=== PATIENT | female | born 1985 | race Caucasian/White ===

== ENCOUNTER → 2018-01-31 11:35 | Outpatient (REF) | payer OTHER, SELFPAY ==
[2018-01-31 13:54] LABS: Alanine Aminotransferase 17 U/L (12-78); Albumin Level 4.5 gm/dL (3.4-5.0); Albumin/Globulin Ratio 1.4 (1.1-1.8); Alkaline Phosphatase 64 U/L (46-116); Anion Gap 13.9 mEq/L (5-15); Aspartate Amino Transferase 6 U/L (15-37); Bilirubin,Total 0.4 mg/dL (0.2-1.0); Blood Urea Nitrogen 14 mg/dL (7-18); Calcium 9.1 mg/dL (8.5-10.1); Carbon Dioxide 27 mmol/L (21.0-32.0); Chloride 105 mmol/L (98-107); Chol/HDL Ratio 2.8 (1-3.5); Cholesterol 165 mg/dL (140-200); Creatinine,Serum 0.73 mg/dL (0.55-1.02); Estimated Glomerular Filt Rate 93 ml/min (>60); GFR (African American) 113 ML/MIN (>60); Globulin 3.3 gm/dl (1.3-3.2); Glucose 88 mg/dL (74-106); HDL Cholesterol 60 mg/dL (29-89); LDL Cholesterol 96 mg/dL (0-130); Potassium 4.9 mmoL/L (3.5-5.1); Sodium 141 mmol/L (136-145); Thyroid Stimulating Hormone 1.21 uIU/ml (0.358-3.740); Total Protein,Serum 7.8 gm/dL (6.4-8.2); Triglycerides 47 mg/dL (30-200); VLDL Cholesterol 9 mg/dL (0-40)
[2018-01-31 13:57] LABS: Basophils % 0.6 % (0.1-2.0); Eosinophils # 0.2 K/mm3 (0.0-0.4); Eosinophils % 2.7 % (0.1-12.0); Hematocrit 41.9 % (37.0-47.0); Hemoglobin 13.8 g/dL (12.2-16.2); Lymphocytes # 1.6 K/mm3 (0.7-4.5); Lymphocytes % 28.9 K/mm3 (10-50); Mean Corpuscular HGB Conc 33.1 g/dL (31.8-35.4); Mean Corpuscular Hemoglobin 31.4 pg (27.0-31.2); Mean Corpuscular Volume 94.8 fl (81-99); Mean Platelet Volume 9.3 fl (7.4-10.4); Monocytes # 0.3 K/mm3 (0.1-1.0); Monocytes % 4.6 % (1.7-9.3); Neutrophils # 3.5 K/mm3 (1.8-7.8); Neutrophils % 63.3 % (37.0-80.0); Platelet Count 145 K/mm3 (142-424); Red Blood Count 4.42 M/mm3 (4.20-5.40); Red Cell Distribution Width 12.9 % (11.5-17.5); White Blood Count 5.5 K/mm3 (4.8-10.8)
[2018-02-02 06:17] LABS: Vitamin D 25 Hydroxy 38.3 ng/mL (30.0-100.0)
== END ==
LOC: LAB 11:35
PROVIDERS: Visit Provider Nurse Practitioner Family
DX: F32.9 Major depressive disorder, single episode, unspecified (principal)
CPT/HCPCS: 80053; 80061; 82652; 84436; 84443; 85025

== ENCOUNTER → 2018-03-15 13:14 | Outpatient (REF) | payer OTHER, SELFPAY ==
[2018-03-15 18:01] LABS: Amphetamine/Metha Screen,Urine Negative ng/mL (<1000); Barbiturates Screen,Urine Negative ng/mL (<200); Benzodiazepines Screen,Urine Negative ng/mL (<200); Cannabinoid Screen,Urine Negative ng/mL (<50); Cocaine Screen,Urine Negative ng/mL (<300); Methadone Screen,Urine Negative ng/mL (<300); Opiate Screen,Urine Negative ng/mL (<300); Phencyclidine Screen,Urine Negative ng/mL (<25)
== END ==
LOC: LAB 13:14
PROVIDERS: Visit Provider Nurse Practitioner Family
DX: F41.9 Anxiety disorder, unspecified (principal)
CPT/HCPCS: 80305

== ENCOUNTER → 2018-03-15 21:56 | Outpatient (CLI) | payer OTHER, SELFPAY ==
[2018-03-21 10:08] LABS: Alprazolam Negative (Cutoff=100); Benzodiazepines Positive ng/mL (Cutoff=100); Clonazepam Positive (.); Flurazepam Negative (Cutoff=100); Lorazepam Negative (Cutoff=100); Midazolam Negative (Cutoff=100); Temazepam Negative (Cutoff=100); Triazolam Negative (Cutoff=100)
[2018-03-22 08:28] LABS: Clonazepam Confirm 163 ng/mL (Cutoff=100)
== END ==
PROVIDERS: Visit Provider Nurse Practitioner Family
DX: Z79.899 Other long term (current) drug therapy (principal); F41.9 Anxiety disorder, unspecified
CPT/HCPCS: 80346

== ENCOUNTER 2020-01-02 15:21 | Emergency (ER) | payer MEDICAID, SELFPAY ==
[2020-01-02 15:29] VITALS: BP 133/86; PULSE 133; RESP 18; TEMP 36.6; O2SAT 98
--- NOTE | 2020-01-02 15:48 | PC.NURSE ---
lab at bedside for legal blood draw.
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
[2020-01-02 16:15] VITALS: BP 114/63; PULSE 100; RESP 18; TEMP 36.6; O2SAT 98
== END 2020-01-02 16:17 | disposition home or self-care (01) ==
PROVIDERS: Emergency Provider Family Medicine
DX: F19.10 Other psychoactive substance abuse, uncomplicated (principal); F17.210 Nicotine dependence, cigarettes, uncomplicated; F41.8 Other specified anxiety disorders
CPT/HCPCS: 36415; 99282

== ENCOUNTER → 2021-04-11 13:55 | Outpatient (CLI) | payer MEDICAID, SELFPAY | PROVIDERS: Visit Provider Nurse Practitioner | DX: Z20.822 Contact with and (suspected) exposure to COVID-19 (principal) | CPT/HCPCS: C9803; U0003; U0005 ==

== ENCOUNTER 2021-10-14 14:11 | Emergency (ER) | payer OTHER, SELFPAY ==
[2021-10-14 15:29] VITALS: BP 120/64; PULSE 74; RESP 18; TEMP 37; O2SAT 100; BMI 23.3
--- NOTE | 2021-10-14 15:43 | HMH.EDUTC ---
[facility] [place] Disposition Clinical Impression: Piriformis syndrome of left side, Radicular pain of left lower extremity Disposition: Home, Self-Care Condition on Discharge: Good Instructions: DI for Leg Pain Additional Instructions: Go home and rest. It would be best if you rested tomorrow too. No heavy lifting. No twisting. Take the oral medications as directed. Don't start the oral steroids (medrol dose pack) until tomorrow, since you had the shots in here today. Follow up with your regular doctor. GO TO THE ER FOR ANY WORSENING SYMPTOMS OR CONCERN, ESPECIALLY BOWEL OR BLADDER ISSUES, SADDLE AREA NUMBNESS, FEVER, ETC Prescriptions: methylPREDNISolone [Medrol] 4 mg PO DIRECTED 6 Days #21 packet Transmission Status: Received by [facility] Referrals: Provider,Referral, [Primary Care Provider] - Forms: Work/School Release Time of Disposition: 16:13 Medical Decision Making - Medical Records Medical records reviewed: No: I reviewed the patient's medical records. - Rudi Inquiry Pt receiving controlled substance: No Vital Signs: 10/14/21 15:29 10/14/21 16:30 Temperature 98.6 F 98.6 F Temperature Source Oral Pulse Rate 74 Pulse Rate [Left] 74 Respiratory Rate 18 18 Blood Pressure 120/64 Blood Pressure [Right Arm] 120/64 Blood Pressure Mean [Right Arm] 82 02 Sat by Pulse Oximetry 100 Orders (Tests/Meds): ED MEDICATIONS Discontinued Medications Generic Name Dose Route Start Last Admin Trade Name Juan Manuelq PRN Reason Stop Dose Admin Ketorolac Tromethamine 60 mg 10/14/21 16:12 10/14/21 16:22 Ketorolac 60mg/2ml Vial IM 10/14/21 16:13 60 mg ONCE ONE Administration Methylprednisolone Sodium Succinate 125 mg 10/14/21 16:12 10/14/21 16:19 Methylprednisolone Sod Succ 125mg Vial IM 10/14/21 16:13 125 mg ONCE ONE Administration [facility] [place] HPI - General Stated complaint: lt leg pain Time Seen by Provider: 10/14/21 15:43 Mode of Arrival: Ambulatory Source of Information: Patient Limitations: No Limitations Description of Symptoms (Recalled from Triage Doc. by RN): pt c/o a sharp pain with numbness and tingling in the back of her L knee that shoots up and down somewhat. pt denies any injury. ongoing x2 mo. pt denies back pain. no visible swelling, redness or warmth. pt states it feels similar to when your hand falls asleep. HEENT Symptoms (Recalled from RN notes): No Resp Symptoms (Recalled from RN notes): No Skin Symptoms (Recalled from RN notes): No MS Symptoms (Recalled from RN notes): Yes Functional Status (Recalled from RN notes): wnl - History of Present Illness Provider Complaint: She c/o right leg pain that radiates down the lateral side and the back of it. This has been ongoing for the past several months, but it is getting worse. - Related Data Previous Rx's Medication Instructions Recorded clonazepam 0.5 mg tablet 0.5 mg PO BID #60 tab 02/16/18 clonazepam 0.5 mg tablet 0.5 mg PO TID #52 tab 02/16/18 escitalopram oxalate 20 mg tablet 20 mg PO DAILY #30 tab 03/15/18 methylPREDNISolone [Medrol] 4 mg PO DIRECTED 6 Days #21 10/14/21 packet Allergies Allergy/AdvReac Type Severity Reaction Status Date / Time No Known Allergies Allergy Verified 03/15/18 08:14 - Worker's Comp Is this a Worker's Comp case?: No [facility] History - Hepatitis A Screen Drug use history?: No High risk sexual behaviors?: No History of sexually transmitted infection?: No Currently employed?: No Childcare worker?: No Do you have indoor plumbing?: Yes Do you have electricity?: Yes Attestation statement:: This patient has been screened for Hepatitis A risk factors. I have reviewed the patient's past medical history: Yes Medical History: Reports:: Anxiety, Depression Other Surgeries: Yes: No Previous Surgery Amputation: No Fractures: No - Social History Smoking Status: Current every day smoker Tobacco Type: cigarettes # Packs/Day (cig
[2021-10-14 16:30] VITALS: BP 120/64; PULSE 74; RESP 18; TEMP 37
== END 2021-10-14 16:37 | disposition home or self-care (01) ==
PROVIDERS: Emergency Provider Nurse Practitioner Family
DX: G57.02 Lesion of sciatic nerve, left lower limb (principal); M54.10 Radiculopathy, site unspecified; F41.8 Other specified anxiety disorders
CPT/HCPCS: 96372; 99213; G0463

== ENCOUNTER 2024-01-31 00:24 | Emergency (ER) | payer SELFPAY ==
[2024-01-31 00:25] VITALS: BP 130/80; PULSE 75; RESP 20; TEMP 36.6; O2SAT 100; BMI 21.6
--- NOTE | 2024-01-31 00:28 | ED_ITS ---
Discharge Plan Disposition Patient Disposition: Home, Self-Care Prescriptions Prescriptions: New tamsulosin 0.4 mg capsule 0.4 mg PO DAILY Qty: 30 0RF ondansetron HCl 4 mg tablet 4 mg PO Q8H PRN (Reason: nausea and vomiting) 5 Days Qty: 30 0RF oxycodone 5 mg tablet 5 mg PO Q8H PRN (Reason: pain) Qty: 12 0RF Referrals Follow up/Referrals: Lamberto Sam MD [Staff Physician] - See instructions Provider,MD Nelson [Primary Care Provider] - See instructions Activity Restrictions/Add. Instructions Additional Instructions/Restrictions: Take tamsulosin as prescribed. Please take Tylenol ibuprofen and oxycodone as needed for pain. Please follow-up with urology. Clinical Impressions Clinical Impression: Hydronephrosis concurrent with and due to calculi of kidney and ureter Stand Alone Forms Stand Alone Forms: Work/School Release Instructions Patient Instructions: DI for Kidney Stones, DI for Hydronephrosis-Adult Discharge ED Provider: Hollis Torres General Adult HPI General Chief complaint: Abdominal Pain Stated complaint: abd pain, back pain Time Seen by Provider: 01/31/24 00:28 History of Present Illness HPI narrative: 38-year-old female without significant past medical history presents for flank pain. She reports it started a couple days ago, was present for a few minutes and then went away. She reports it happened again earlier today. She reports the pain currently has been present for 4 hours during this particular episode. She reports that she has had some increased urinary frequency but does not really feel like when she has had urinary tract infections in the past. She denies any fever or systemic symptoms. Denies any history of kidney stones, reports there is no way she could be , denies any history abdominal surgery. Related Data Previous Rx's Medication Instructions Recorded ondansetron HCl 4 mg tablet 4 mg PO Q8H PRN nausea and 01/31/24 vomiting 5 days #30 tabs oxycodone 5 mg tablet 5 mg PO Q8H PRN pain #12 tabs 01/31/24 tamsulosin 0.4 mg capsule 0.4 mg PO DAILY #30 caps 01/31/24 Allergies Allergy/AdvReac Type Severity Reaction Status Date / Time No Known Allergies Allergy Verified 03/15/18 08:14 [facility] Disclaimer: The information contained in this section may have been updated after the patient was seen, as this information can be updated by other users. Social History (Updated 01/31/24 @ 00:38 by Abhijit Howell RN) Smoking Status: Current every day smoker tobacco type: cigarettes packs per day: 0 alcohol intake: current substance use type: denies use current occupational status: other Travel in the last 8 weeks: None household members: other housing: other ROS Obtained: Yes All systems reviewed & no additional complaints except as documented Physical Exam General General appearance: alert and in no apparent distress Head Head exam: atraumatic and normocephalic Eye Eye exam: Present normal appearance, PERRL and EOMI ENT ENT exam: Present normal oropharynx and normal external ear exam Neck Neck exam: Present normal inspection and full ROM Chest Chest inspection: Present normal inspection and symmetric chest wall rise; Absent tenderness Respiratory Respiratory exam: Present normal lung sounds bilaterally; Absent respiratory distress Cardiovascular Cardiovascular exam: Present regular rate and normal rhythm Abdominal Exam Abdominal exam: Present soft; Absent distention, tenderness or guarding Extremities Exam Extremities exam: Present normal inspection; Absent edema or joint swelling Back Exam Back exam: Present normal inspection, tenderness and CVA tenderness (L) Neurological Exam Neurological exam: Present alert and oriented X3; Absent motor sensory deficit Psychiatric Psychiatric exam: Present normal affect and normal mood Skin Skin exam: Present warm, dry and normal color Lymphatic Lymphatic Findings: no adenopathy Medical Decision Making Medical Records Medical records reviewed: Yes I reviewed the patient's medical records. Rudi Inquiry Pt receiving controlled substance: No Rudi was queried for this patient: No Vital Signs: 01/31/24 00:25 01/31/24 01:56 Temperature 97.9 F 97.9 F Temperature Source Oral Oral Pulse Rate 76 Pulse Rate [Left] 75 Respiratory Rate 20 16 Blood Pressure 130/80 Blood Pressure [Right Arm] 130/80 Blood Pressure Mean [Right Arm] 96 Blood Pressure Source Automatic Cuff Blood Pressure Source [Right Arm] Automatic Cuff Blood Pressure Position [Right Arm] Sitting 02 Sat by Pulse Oximetry 100 Oxygen Delivery Method Room Air Room Air Lab Data Lab results reviewed: Yes I reviewed the patient's lab results. Lab Results 01/31/24 00:27: Urine Color Dark yellow, Urine Appearance Slightly cloudy, Urine pH 6.0, Ur Specific [place] 1.020, Urine Protein Negative, Urine Glucose (UA) Negative, Urine Ketones Negative, Urine Blood 3+, Urine Nitrate Negative, Urine Bilirubin Negative, Urine Urobilinogen 0.2, Ur Leukocyte Esterase Negative, Urine RBC 10-20, Urine WBC None, Ur Squamous Epith Cells 3-5, Urine Bacteria Trace, Urine HCG, Qual Negative Orders (Tests/Meds): ED MEDICATIONS Discontinued Medications Generic Name Dose Route Start Last Admin Trade Name Artis PRN Reason Stop Dose Admin Acetaminophen 1,000 mg 01/31/24 00:40 01/31/24 00:55 Acetaminophen 500mg Tab PO 01/31/24 00:41 1,000 mg ONCE ONE Administration Ketorolac Tromethamine 30 mg 01/31/24 00:40 01/31/24 00:55 Ketorolac 30mg/Ml Vial IM 01/31/24 00:41 30 mg ONCE ONE Administration Morphine Sulfate 4 mg 01/31/24 00:40 01/31/24 00:58 Morphine 2mg/Ml Syringe IM 01/31/24 00:41 Not Given ONCE ONE Morphine Sulfate 4 mg 01/31/24 00:56 01/31/24 00:58 Morphine 4mg/Ml Syringe IM 01/31/24 00:57 4 mg ONCE ONE Administration Ondansetron HCl 4 mg 01/31/24 00:40 01/31/24 00:55 Ondansetron 4mg Odt SL 01/31/24 00:41 4 mg ONCE ONE Administration Oxycodone HCl 5 mg 01/31/24 01:49 01/31/24 02:04 Oxycodone 5mg Immediate Release Tablet PO 01/31/24 01:50 5 mg ONCE ONE Administration Tamsulosin HCl 0.4 mg 01/31/24 02:00 01/31/24 02:04 Tamsulosin 0.4mg Capsule PO 01/31/24 02:01 0.4 mg ONCE ONE Administration ORDERS Category Date Time Status CT abdomen pelvis wo con Stat Cat Scan 01/31/24 00:40 Completed UA [Urinalysis and Microscopic] Stat Lab 01/31/24 00:27 Completed Urine , HCG Qual. Stat Lab 01/31/24 00:27 Completed Medical Decision Narrative: 38-year-old female vaccinated past medical history presents for left flank pain times a couple of days. History was obtained via interactive discussion with patient, chart review. On arrival, patient is [afebrile, hemodynamically stable, satting appropriately, alert, oriented x4, GCS 15], moving all extremities spontaneously. Full physical exam performed and significant for left flank pain Differential includes but is not limited to obstructive ureterolithiasis, miriam lonephritis, colonic pathology, musculoskeletal pain,. Patient was given IM morphine, Toradol, p.o. Tylenol, p.o. Zofran for symptomatic management and correction of underlying abnormalities. Workup initiated including UA, urine pride, CT abdomen pelvis without contrast. On re-evaluation, patient [remains afebrile, HD stable.] Laboratory workup independently interpreted by me and significant for negative test, RBCs in the urine but no evidence of infection.. Imaging independently interpreted by me and significant for mild left hydronephrosis with small distal ureteral calculus, approximately 3 mm. See radiology read for full review of final results. Transfer for urologic evaluation was considered, but deemed unnecessary due to history exam radiology findings and pain control. Patient given oxycodone and tamsulosin in ED. Given patient history, exam and workup, patient's presentation most likely represents obstructive left ureterolithiasis with resultant flank pain. No evidence of surgical emergency at this time. Patient was discharged with prescription for oxycodone for pain control as well as Flomax. Instructed follow-up with urology. Return precautions given.. Procedures Risk/Benefits of Procedure(s) Were Explained: Yes Critical Care Critical Care Time Critical Care Time: No
--- NOTE | 2024-01-31 00:40 | CT_ITS ---
PROCEDURE INFORMATION: Exam: CT Abdomen And Pelvis Without Contrast Exam date and time: 01/31/2024 12:58 AM Age: 38 years old Clinical indication: Abdominal pain; Flank; Left; Additional info: Left flank pain TECHNIQUE: Imaging protocol: Computed tomography of the abdomen and pelvis without contrast. Radiation optimization: All CT scans at this facility use at least one of these dose optimization techniques: automated exposure control; mA and/or kV adjustment per patient size (includes targeted exams where dose is matched to clinical indication); or iterative reconstruction. COMPARISON: No relevant prior studies available. FINDINGS: Lungs: No acute finding. Liver: Normal. No mass. Gallbladder and biliary ducts: Normal. No calcified stones. No ductal dilation. Pancreas: Normal. No ductal dilation. Spleen: Normal. No splenomegaly. Adrenal glands: Normal. No mass. Kidneys and ureters: There is a 3 mm left ureteral calculus at the level of the UVJ causing mild hydroureteronephrosis. Solitary tiny bilateral intrarenal calculi are noted otherwise. Stomach and bowel: Unremarkable. No obstruction. No mucosal thickening. Appendix: No evidence of appendicitis. Intraperitoneal space: Unremarkable. No free air. No significant fluid collection. Vasculature: Unremarkable. No abdominal aortic aneurysm. Lymph nodes: Unremarkable. No enlarged lymph nodes. Urinary bladder: Unremarkable as visualized. Reproductive: Unremarkable as visualized. Bones/joints: Unremarkable. No acute fracture. Soft tissues: Unremarkable. IMPRESSION: 3 mm left ureteral calculus at the level of the UVJ causing mild hydroureteronephrosis. Solitary tiny bilateral intrarenal calculi are noted otherwise.
[2024-01-31 00:46] LABS: Microscopic, Urine URINE MICROSCOPIC (MICROSCOPIC)
[2024-01-31 00:49] LABS: Bilirubin,Urine Negative (Negative); Blood, Urine 3+ (Negative); Glucose,Urine (UA) Negative (Negative); Ketones,Urine Negative (Negative); Leukocyte Esterase,Urine Negative (Negative); Nitrate,Urine Negative (Negative); Protein,Urine Negative (Negative); Urobilinogen,Urine 0.2 EU/dl (0.2)
[2024-01-31 00:51] LABS: Appearance,Urine Slightly Cloudy (Clear); Color,Urine Dark Yellow (Yellow); Urine Pregnancy, HCG Qual. Negative (Negative)
[2024-01-31] MEDS: ACETAMINOPHEN 500MG TAB 1000 MG PO (00:55)
[2024-01-31] MEDS: KETOROLAC 30MG/ML VIAL 30 MG IM (00:55)
[2024-01-31] MEDS: ONDANSETRON 4MG ODT 4 MG SL (00:55)
[2024-01-31] MEDS: MORPHINE 4MG/ML SYRINGE 4 MG IM (00:58)
[2024-01-31 01:02] LABS: Bacteria,Urine Trace /lpf
[2024-01-31 01:56] VITALS: BP 130/80; PULSE 76; RESP 16; TEMP 36.6; O2SAT 99
[2024-01-31] MEDS: TAMSULOSIN 0.4MG CAPSULE 0.4 MG PO (02:04)
[2024-01-31] MEDS: OXYCODONE 5MG IMMEDIATE RELEASE TABLET 5 MG PO (02:04)
--- NOTE | 2024-01-31 09:25 | PC.NURSE ---
[facility] called ER to learn of diagnosis for patient regarding pain medication sent to pharmacy.
== END 2024-01-31 02:21 | disposition home or self-care (01) ==
PROVIDERS: Emergency Provider Emergency Medicine
DX: N13.2 Hydronephrosis with renal and ureteral calculous obstruction (principal); R10.30 Lower abdominal pain, unspecified; M54.59 Other low back pain; F17.210 Nicotine dependence, cigarettes, uncomplicated
CPT/HCPCS: 74176; 81001; 81025; 96372; 99284; J1885; J2270